=== PATIENT | male | born 1955 | race Caucasian/White ===

== ENCOUNTER 2017-04-01 17:53 | Observation (INO) | payer OTHER ==
[~2017-04-01] VITALS: Ht 185.4 cm; Wt 93.0 kg
[2017-04-01 17:53] VITALS: BP 142/80; PULSE 78; RESP 16; TEMP 98.2; O2SAT 98
--- NOTE | 2017-04-01 17:53 | NUR ---
AMBULATED TO BED 1, TRIAGED AT BEDSIDE 12 LEAD EKG IN PROGRESS
[2017-04-01] MEDS ORDERED: ASPIRIN 81 MG TAB.CHEW PO ONE (18:15)
--- NOTE | 2017-04-01 18:59 | NUR ---
Labs drawn at bedside, ASA given no s/s of distress at this time
--- NOTE | 2017-04-01 19:10 | NUR ---
Morphine and NTG SL given per Dr. Nuñez's order for 810 pain
[2017-04-01 19:15] LABS: BASOPHILS # (AUTO) 0.1 K/uL (0.0-0.2); BASOPHILS % (AUTO) 0.5 % (0.0-2.0); EOSINOPHILS # (AUTO) 0.2 K/uL (0.0-0.4); EOSINOPHILS % (AUTO) 1.6 % (0.0-4.0); HEMATOCRIT 50.9 % (36-54); HEMOGLOBIN 16.6 g/dL (14.0-18.0); LYMPHOCYTES # (AUTO) 1.8 K/uL (1.0-5.5); LYMPHOCYTES % (AUTO) 16.2 % (20.5-51.5); MEAN CORPUSCULAR HEMOGLOBIN 28 pg (27-31); MEAN CORPUSCULAR HGB CONC 33 % (32-36); MEAN CORPUSCULAR VOLUME 84 fL (79.0-98.0); MONOCYTES # (AUTO) 1.2 K/uL (0.0-1.0); MONOCYTES % (AUTO) 10.7 % (1.7-9.3); NEUTROPHILS # (AUTO) 7.6 K/uL (1.8-7.7); PLATELET COUNT (AUTO) 263 K/uL (130-430); RED BLOOD CELL COUNT(AUTO) 6.03 MIL/uL (4.2-6.2); WHITE BLOOD COUNT (AUTO) 10.9 K/uL (4.8-10.8)
[2017-04-01] MEDS ORDERED: MORPHINE 2 MG/ML INJ. SYRINGE IVP ONE (19:15)
[2017-04-01] MEDS ORDERED: NITROGLYCERIN 0.4 MG TAB.SUBL SL ONE (19:15)
--- NOTE | 2017-04-01 19:15 | NUR ---
ER at bedside examining patient.
[2017-04-01 19:16] LABS: CALCIUM 9.3 mg/dL (8.4-11.0); CREATININE 1.49 mg/dL (0.55-1.30); POTASSIUM 4.8 mmol/L (3.5-5.1)
--- NOTE | 2017-04-01 19:16 | NUR ---
2nd NTG given for 5/10 CP VS updated prior to administration
[2017-04-01] MEDS ORDERED: METH2.5T PO (19:21)
--- NOTE | 2017-04-01 19:22 | NUR ---
3rd NTG give for 3/10 Chest pain
[2017-04-01] MEDS ORDERED: MORPHINE 2 MG/ML INJ. SYRINGE IVP PRN (19:30)
[2017-04-01] MEDS ORDERED: COMMUNICATION ORDER XX ONE (19:30)
[2017-04-01] MEDS ORDERED: NITROGLYCERIN 0.4 MG TAB.SUBL SL PRN (19:30)
[2017-04-01 19:33] LABS: TOTAL BILIRUBIN 0.5 mg/dL (0.0-1.0); TOTAL PROTEIN, SERUM 7.6 g/dL (6.4-8.3)
--- NOTE | 2017-04-01 19:45 | NUR ---
Medication reconciliation completed with information provided by patient. Any prior medication reconciliation on file was reviewed and corrected.
--- NOTE | 2017-04-01 19:46 | NUR ---
C/O 02/20 CP aware
--- NOTE | 2017-04-01 20:22 | NUR ---
ADMISSION NOTE Received patient from ER via mass[facility], received report from Bernadette GUTIERRES. Patient admitted with diagnosis of chest pain. Patient oriented to hospital routine, call light, toileting and safety-patient verbalized understanding.
--- NOTE | 2017-04-01 20:23 | NUR ---
ADMIT NOTE Received pt from ER to the floor with a diagnosis of CP. Admission process initiated. patient oriented to pain management, safety and call light-teach back done.
--- NOTE | 2017-04-01 20:30 | NUR ---
Initial PM Note Pt is resting comfortably in bed and denies chest pain at this time. Plan of care discussed with pt and his and they both verbalized understanding. Fall and safety precautions are in place. Call light is with pt. Bed is in the lowest and locked positions. Pt was instructed to call for assistance as needed and pt verbalized understanding. Will continue to monitor pt.
--- NOTE | 2017-04-01 20:36 | NUR ---
Patient will be admitted to care of Dr Fortune. Admitted to Tele unit. Will go to room 110b. Belongings list completed. Summary report printed. Report will be given at bedside.
[2017-04-01 20:38] VITALS: BP 150/67; PULSE 81; RESP 18; TEMP 98.3; O2SAT 99
[2017-04-01] MEDS ORDERED: FOLI-43 PO (20:59)
[2017-04-01] MEDS ORDERED: TAMS-11 PO (20:59)
--- NOTE | 2017-04-01 22:00 | NUR ---
Rounds Pt is resting comfortably in bed. monitor and storage bin tender is showing SR and pt denies chest pain.
[2017-04-01] MEDS: METOPROLOL TARTRATE 25 MG TABLET PO SCH (23:45)
[2017-04-01] MEDS ORDERED: METOPROLOL TARTRATE 5 MG/5 ML VIAL IVP PRN (23:45)
[2017-04-01] MEDS ORDERED: ONDANSETRON HCL 4 MG/2 ML VIAL IVP PRN (23:45)
--- NOTE | 2017-04-01 23:50 | NUR ---
Rounds Pt is resting comfortably in bed and no c/o chest pain or discomfort. Pt was instructed on nothing by mouth after midnight except medications per attending doctor and pt verbalized understanding.
[2017-04-02] MEDS ORDERED: METOPROLOL TARTRATE 25 MG TABLET PO ONE (00:15)
--- NOTE | 2017-04-02 00:35 | NUR ---
Urine Specimen Urine specimen collected and sent to the lab for UA, glucose, random sodium, creatinine and culture.
[2017-04-02 01:11] VITALS: BP 108/73; PULSE 69; RESP 16; TEMP 96.8; O2SAT 95
[2017-04-02 01:36] LABS: BILIRUBIN,URINE NEGATIVE (NEGATIVE); BLOOD, URINE NEGATIVE (NEGATIVE); CLARITY/URINE CLEAR (CLEAR); COLOR,URINE YELLOW (YELLOW); GLUCOSE,URINE NEGATIVE (NEGATIVE); KETONES,URINE NEGATIVE (NEGATIVE); LEUKOCYTE ESTERASE ,URINE NEGATIVE (NEGATIVE); NITRITE, URINE NEGATIVE (NEGATIVE); PH,URINE 5.5 (5.0-8.0); PROTEIN URINE NEGATIVE (NEGATIVE); UROBILINOGEN,URINE 0.2 (0.2-1.0)
--- NOTE | 2017-04-02 02:00 | NUR ---
Rounds Pt is sleeping comfortably in bed. Call light is with pt.
--- NOTE | 2017-04-02 04:00 | NUR ---
Rounds Pt is resting comfortably in bed. Fall and safety precautions are in place.
[2017-04-02 05:07] VITALS: BP 121/70; PULSE 78; RESP 17; TEMP 97.1; O2SAT 96
--- NOTE | 2017-04-02 06:30 | NUR ---
Closing Note Pt is resting comfortably in bed. All pt's needs were attended to. No fall or injury noted this shift. Will endorse to day shift nurse.
--- NOTE | 2017-04-02 06:40 | NUR ---
CARDIOLOGY CONSULT Spoke with Amanda regarding request for consultation with Dr. Velasquez ([phone]) for reason: chest pain, stress test.
[2017-04-02 07:00] LABS: CALCIUM 8.5 mg/dL (8.4-11.0); CREATININE 1.31 mg/dL (0.55-1.30); PHOSPHORUS 3.5 mg/dL (2.7-4.5); POTASSIUM 3.9 mmol/L (3.5-5.1)
[2017-04-02 07:02] LABS: BASOPHILS % (AUTO) 0.4 % (0.0-2.0); EOSINOPHILS # (AUTO) 0.2 K/uL (0.0-0.4); EOSINOPHILS % (AUTO) 2.6 % (0.0-4.0); HEMOGLOBIN 15.9 g/dL (14.0-18.0); LYMPHOCYTES # (AUTO) 1.8 K/uL (1.0-5.5); LYMPHOCYTES % (AUTO) 19.1 % (20.5-51.5); MEAN CORPUSCULAR HEMOGLOBIN 28 pg (27-31); MEAN CORPUSCULAR HGB CONC 33 % (32-36); MEAN CORPUSCULAR VOLUME 85 fL (79.0-98.0); MONOCYTES # (AUTO) 1.3 K/uL (0.0-1.0); MONOCYTES % (AUTO) 13.5 % (1.7-9.3); NEUTROPHILS # (AUTO) 6.1 K/uL (1.8-7.7); NEUTROPHILS % (AUTO) 64.4 % (40.0-70.0); PLATELET COUNT (AUTO) 261 K/uL (130-430); RED BLOOD CELL COUNT(AUTO) 5.68 MIL/uL (4.2-6.2); RED CELL DISTRIBUTION WIDTH 14.3 % (9.0-15.0); WHITE BLOOD COUNT (AUTO) 9.4 K/uL (4.8-10.8)
--- NOTE | 2017-04-02 07:15 | NUR ---
NRSG: RECEIVED FROM NIGHT NURSE, LYING ON BED AWAKE,ALERT AND ORIENTED X 4. NO PAIN, RESPIRATION EVEN AND UNLABORED. LUNGS CLEAR BILATERAL. NO O2 AND O2 SAT. 96^. ABDOMEN SOFT WITH BOWEL SOUND X 4 QUADRANTS. IV SITE ON THE RIGHT HAND GAUGE 20 INTACT AND INPLACED NO S/S OF INFILTRATION. INSTRUCTED TO BE NPO EXCEPTS MEDS AND UNDERSTOOD.CALL LIGHT WITHIN REACH
[2017-04-02 08:00] VITALS: BP 115/52; PULSE 65; RESP 18; TEMP 97.4; O2SAT 96
--- NOTE | 2017-04-02 08:36 | NUR ---
NPO: STILL REMINDED TO BE NPO EXCEPT FOR MEDS.
[2017-04-02] MEDS ORDERED: ASPIRIN 81 MG TAB.CHEW PO SCH (09:00)
[2017-04-02] MEDS ORDERED: TAMSULOSIN HCL 0.4 MG CAP PO SCH (09:00)
[2017-04-02] MEDS ORDERED: ENOXAPARIN SODIUM 30 MG/0.3 ML SYRINGE SUBCUT SCH (09:00)
[2017-04-02] MEDS ORDERED: NICOTINE 14 MG/24 HR PATCH.TD24 TD SCH (09:00)
[2017-04-02] MEDS ORDERED: FOLIC ACID 1 MG TABLET PO SCH (09:00)
--- NOTE | 2017-04-02 09:14 | NUR ---
ROUNDS: SEEN BY DR. SINCLAIR WITH NEW ORDERS.
[2017-04-02 09:19] LABS: URINE SODIUM, RANDOM 72 mmol/L (40-220)
[2017-04-02] MEDS: METOPROLOL TARTRATE 25 MG TABLET PO SCH (09:30)
--- NOTE | 2017-04-02 09:47 | NUR ---
TEST: WENT FOR STRESS TESTBY WHEELCHAIR ACCOMPANIED BY TECH.
[2017-04-02 10:52] LABS: CHOLESTEROL 202 mg/dL (<200); HDL CHOLESTEROL 25 mg/dL (>45); LDL CHOLESTEROL 111 mg/dL (<100); TRIGLYCERIDES 273 mg/dL (30-150)
--- NOTE | 2017-04-02 12:00 | NUR ---
ACTIVITY: RESTING ON BED AND AT THE BEDSIDE, NO CHEST PAIN AND DENIES SHORTHNESS OF BREATH.
[2017-04-02 12:37] VITALS: BP 114/74; PULSE 65; RESP 15; TEMP 97.8; O2SAT 94
--- NOTE | 2017-04-02 13:05 | NUR ---
MD CALL: DR. PEREIRA CALLED AND ORDER OKAY TO DC IF OKAY WITH DR. SINCLAIR AND IN THE PROGRESS NOTES DR. SINCLAIR WROTE OK TO DR. DAVID GRAHAM RN CALLED DR. SINCLAIR AND NO PRESCRITION .
[2017-04-02 13:14] VITALS: BP 118/74; PULSE 65; RESP 18; TEMP 97.8; O2SAT 95
--- NOTE | 2017-04-02 14:00 | NUR ---
DC: DISCHARGED HOME AWAKE,ALERT AND ORIENTED, NO CHEST PAIN , IV WAS REMOVED WITHOUT DIFFICULTY AND CATHETER INTACT. WALKED PATIENT ACCOMPANIED BY AND NURSE AND ALL BELONGINGS SENT.
== END 2017-04-02 14:00 | disposition home or self-care (01) ==
LOC: SED 17:53 → STU 19:30
PROVIDERS: ADMIT Internal Medicine; ATTEND Internal Medicine
DX: R07.89 Other chest pain (principal); F17.200 Nicotine dependence, unspecified, uncomplicated
CPT/HCPCS: 36415 ×2; 71010; 80048; 80053; 80061; 81003; 82570; 83735; 83880; 84100; 84302; 84484 ×2; 85025 ×2; 85610; 85730; 87086; 93005 ×2; 93017; 93306; 96372; 96374; 99285; G0378 ×2; J1650; J2270

== ENCOUNTER 2023-01-27 21:39 | Inpatient (IN) | payer OTHER ==
[~2023-01-27] VITALS: Ht 185.4 cm; Wt 100.9 kg
[~2023-01-27 21:39] MED LIST: FOLI-43 PO; METH2.5T PO; TAMS-11 PO
[2023-01-27 21:44] VITALS: BP_SYST 182
[2023-01-27] MEDS ORDERED: LABETALOL HCL 20 MG/4 ML CARTRIDGE IVP ONE (22:15)
[2023-01-27 22:32] LABS: HEMATOCRIT 39.2 % (36-54); HEMOGLOBIN 13.3 g/dL (14.0-18.0); MEAN CORPUSCULAR HEMOGLOBIN 26 pg (27-31); MEAN CORPUSCULAR HGB CONC 34 % (32-36); MEAN CORPUSCULAR VOLUME 77 fL (79.0-98.0); PLATELET COUNT (AUTO) 149 K/uL (130-430); RED BLOOD CELL COUNT(AUTO) 5.08 MIL/uL (4.2-6.2); RED CELL DISTRIBUTION WIDTH 14.2 % (9.0-15.0); WHITE BLOOD COUNT (AUTO) 3.4 K/uL (4.8-10.8)
[2023-01-27] MEDS ORDERED: MECLIZINE HCL 25 MG TABLET (ANITVERT) PO ONE (22:45)
[2023-01-27 22:52] LABS: ATYPICAL LYMPHOCYTES % 2 % (0-0); BAND % (MANUAL) 2 % (0-6); BASOPHILS % (MANUAL) 0 % (0-2); EOSINOPHILS % (MANUAL) 2 % (0-7); LYMPHOCYTES % (MANUAL) 50 % (20-46); MONOCYTES % (MANUAL) 19 % (0-11)
[2023-01-27 22:53] LABS: ALBUMIN 3.5 g/dL (3.4-4.8); CALCIUM 8.1 mg/dL (8.4-11.0); CREATININE 1.66 mg/dL (0.55-1.30); TOTAL BILIRUBIN 0.5 mg/dL (0.0-1.0)
[2023-01-27] MEDS ORDERED: IOHEXOL 350 mgI/mL, 150 ML INFUS..BTL IV ONE (23:25)
[2023-01-28] MEDS ORDERED: LISINOPRIL 10 MG TABLET (PRINIVIL) PO ONE
[2023-01-28] MEDS ORDERED: D5/0.45 NS 1,000 ML IV SCH (00:30)
[2023-01-28] MEDS ORDERED: hydrALAZINE HCL 20 MG/ML VIAL IVP PRN (00:30)
[2023-01-28] MEDS ORDERED: LABETALOL HCL 20 MG/4 ML CARTRIDGE IVP ONE (00:39)
[2023-01-28 02:45] VITALS: BP_SYST 152
[2023-01-28 10:57] VITALS: BP_SYST 137
[2023-01-28 11:02] VITALS: BP_SYST 137
[2023-01-28] MEDS ORDERED: NALOXONE HCL 0.4 MG/ML AMP (NARCAN) IVP PRN ×2 (11:15)
[2023-01-28] MEDS ORDERED: HYDROcodone/ACETAMIN 10-325 MG TAB PO PRN (11:15)
[2023-01-28] MEDS ORDERED: ONDANSETRON HCL 4 MG/2 ML VIAL IVP PRN (11:15)
[2023-01-28] MEDS ORDERED: LORazepam 2 MG/ML VIAL IVP PRN (11:15)
[2023-01-28] MEDS ORDERED: HYDROcodone/ACETAMIN 5-325 MG TAB (NORCO/ VICODIN) PO PRN (11:15)
[2023-01-28] MEDS ORDERED: ACETAMINOPHEN 325 MG TABLET PO PRN (11:15)
[2023-01-28 11:43] VITALS: BP_SYST 138
[2023-01-28 13:40] VITALS: BP_SYST 137
[2023-01-28] MEDS ORDERED: NORMAL SALINE 5 ML DISP.SYRIN IVF SCH (14:00)
[2023-01-28 14:41] VITALS: BP_SYST 137
== END 2023-01-28 14:20 | disposition home or self-care (01) | DRG 304 ==
LOC: SED 21:39 → STU 01-28 00:49
PROVIDERS: ADMIT Internal Medicine; ATTEND Internal Medicine
DX: I16.0 Hypertensive urgency (principal); N17.0 Acute kidney failure with tubular necrosis; G45.9 Transient cerebral ischemic attack, unspecified; M06.9 Rheumatoid arthritis, unspecified; I10 Essential (primary) hypertension; Z20.822 Contact with and (suspected) exposure to COVID-19
CPT/HCPCS: 36415; 70450-TC; 70496; 70498; 76376; 80053; 85007; 85027; 86803; 93005; 93306; 96374; 99285; G0378; J8597; Q9967